=== PATIENT | female | born 1945 | race Caucasian/White ===

== ENCOUNTER → 2017-01-12 | Outpatient (CLI) | payer MEDICARE, OTHER ==
--- NOTE | 2017-01-12 12:43 | Diagnostic Imaging Report ---
INDICATION: Screening mammogram. COMPARISON: 01/09/2016. TECHNIQUE: Digital screening mammography was obtained with CAD and 3-dimensional tomosynthesis. FINDINGS: Scattered fibroglandular densities are present. There is no mass or suspicious calcification. IMPRESSION: Stable screening mammogram. No malignancy. ACR BI-RADS Category 1: Negative. Result letter will be mailed to the patient. Note: At least 10% of breast cancer is not imaged by mammography. Dictated by: Dictated on workstation # [id number]
== END ==
LOC: RAD 08:39
PROVIDERS: ATTEND Family Medicine
DX: Z12.31 Encounter for screening mammogram for malignant neoplasm of breast (principal)
CPT/HCPCS: 77067

== ENCOUNTER 2017-02-20 05:35 | Outpatient (CLI) | payer MEDICARE, OTHER ==
[~2017-02-20] VITALS: Ht 172.7 cm; Wt 89.8 kg
[2017-02-20] MEDS ORDERED: METF1000 PO (08:56)
[2017-02-20] MEDS ORDERED: CYAN250010 PO (08:56)
[2017-02-20] MEDS ORDERED: ASPI-586 PO (08:56)
[2017-02-20] MEDS ORDERED: iron PO (08:56)
[2017-02-20] MEDS ORDERED: AMLO5TAB2 PO (08:56)
[2017-02-20] MEDS ORDERED: METO-270 PO (08:56)
[2017-02-20] MEDS ORDERED: CHOL10003 PO (08:56)
[2017-02-20] MEDS ORDERED: FISH1CAP15 PO (08:56)
[2017-02-20] MEDS ORDERED: SIMV20TA3 PO (08:56)
[2017-02-20] MEDS ORDERED: CLON1TAB3 PO (08:56)
[2017-02-20] MEDS ORDERED: CITA40TA11 PO (08:56)
[2017-02-20] MEDS ORDERED: LEVO50TA6 PO (08:56)
== END 2017-02-20 09:18 ==
LOC: PREOP 05:35
PROVIDERS: ATTEND Surgery
DX: Z01.818 Encounter for other preprocedural examination (principal); Z80.0 Family history of malignant neoplasm of digestive organs

== ENCOUNTER 2017-02-23 07:56 | Day surgery (SDC) | payer MEDICARE, OTHER ==
[~2017-02-23] VITALS: Ht 172.7 cm; Wt 89.8 kg
[~2017-02-23 07:56] MED LIST: AMLO5TAB2 PO; ASPI-586 PO; CHOL10003 PO; CITA40TA11 PO; CLON1TAB3 PO; CYAN250010 PO; FISH1CAP15 PO; LEVO50TA6 PO; METF1000 PO; METO-270 PO; SIMV20TA3 PO; iron PO
--- OUTSIDE RECORDS SUMMARY | 2017-02-23 08:01 | XMS REPORT | Continuity of Care Document ---
Author Author [facility] Organization [facility] Address Unknown Phone Unavailable Allergies Active Description Code Type Severity Reaction Onset Reported/Identified Relationship to Patient Clinical Status Yes Sulfa (Sulfonamide Antibiotics) [id number] Drug Allergy Unknown N/A 05/14/2007 Medications Problems Date Dx Coded Attending Type Code Diagnosis Diagnosed By 12/27/2014 Ot 611.72 12/27/2014 Ot V76.12 12/27/2014 Ot 793.89 01/06/2015 CARLOTA HERNANDEZ, MARY LOU A Ot 250.00 DIAB EILEEN WO COMPL, TYPE II OR UNSPEC TY 01/06/2015 MARY LOU VAN MD A Ot 401.9 HYPERTENSION NOS 01/06/2015 MATT VAN MDNT A Ot 780.2 SYNCOPE AND COLLAPSE 01/06/2015 MATT VAN MDNT A Ot 992.5 HEAT EXHAUSTION NOS 01/06/2015 CARLOTA HERNANDEZ MARY LOU A Ot E000.8 OTHER EXTERNAL CAUSE STATUS 01/06/2015 MARY LOU VAN MD A Ot E849.[address] NEC 01/06/2015 CARLOTA HERNANDEZ MARY LOU A Ot E900.0 EXCESSIVE HEAT: WEATHER 01/06/2015 CARLOTA HERNANDEZ MARY LOU A Ot V15.82 HISTORY OF TOBACCO USE 01/06/2015 MARYANNE VIRGEN DO Ot V76.12 01/23/2015 MARYANNE VIRGEN DO Ot V76.12 11/15/2015 SERGIO BOND MANAGER RADIO Ot R00.0 TACHYCARDIA, UNSPECIFIED 11/15/2015 SERGIO BOND MANAGER RADIO Ot R42 DIZZINESS AND GIDDINESS 11/15/2015 SERGIO BOND MANAGER RADIO Ot R53.83 OTHER FATIGUE 11/16/2015 SERGIO BOND MANAGER RADIO Ot R00.0 TACHYCARDIA, UNSPECIFIED 11/16/2015 SERGIO BOND MANAGER RADIO Ot R42 DIZZINESS AND GIDDINESS 11/16/2015 SERGIO BOND MANAGER RADIO Ot R53.83 OTHER FATIGUE 12/11/2015 SERGIO BOND MANAGER RADIO Ot R00.0 TACHYCARDIA, UNSPECIFIED 12/11/2015 SERGIO BOND MANAGER RADIO Ot R42 DIZZINESS AND GIDDINESS 12/11/2015 SERGIO BOND MANAGER RADIO Ot R53.83 OTHER FATIGUE 12/19/2015 MARYANNE VIRGEN DO Ot V76.12 OTH SCREEN MAMMO-MALIGN NEOPLASM OF JEFFREY 12/19/2015 SERGIO BOND MANAGER RADIO Ot R00.0 TACHYCARDIA, UNSPECIFIED 12/19/2015 SERGIO BOND MANAGER RADIO Ot R42 DIZZINESS AND GIDDINESS 12/19/2015 SERGIO BOND MANAGER RADIO Ot R53.83 OTHER FATIGUE 12/20/2015 VANBECELAERE, HANS M WEB MANAGER Ot R06.09 OTHER FORMS OF DYSPNEA 12/20/2015 VANBECELAERE, HANS M WEB MANAGER Ot R07.9 CHEST PAIN, UNSPECIFIED 12/20/2015 VANBECELAERE, HANS M WEB MANAGER Ot Z82.49 FAMILY HX OF ISCHEM HEART DIS AND OTH DI 12/20/2015 VANBECELAERE, HANS M WEB MANAGER Ot R06.09 OTHER FORMS OF DYSPNEA 12/20/2015 VANBECELAERE, HANS M WEB MANAGER Ot R07.9 CHEST PAIN, UNSPECIFIED 12/20/2015 VANBECELAERE, HANS M WEB MANAGER Ot Z82.49 FAMILY HX OF ISCHEM HEART DIS AND OTH DI 01/10/2016 MARYANNE VIRGEN DO S Ot Z12.31 ENCNTR SCREEN MAMMOGRAM FOR MALIGNANT NE 01/14/2016 VANBECELAERE, HANS M WEB MANAGER Ot R06.09 OTHER FORMS OF DYSPNEA 01/14/2016 VANBECELAERE, HANS M WEB MANAGER Ot R07.9 CHEST PAIN, UNSPECIFIED 01/14/2016 VANBECELAERE, HANS M WEB MANAGER Ot Z82.49 FAMILY HX OF ISCHEM HEART DIS AND OTH DI 02/01/2016 MARYANNE VIRGEN DO S Ot Z12.31 ENCNTR SCREEN MAMMOGRAM FOR MALIGNANT NE 01/09/2017 RADHA VIRGEN DOLINE S Ot Z12.31 ENCNTR SCREEN MAMMOGRAM FOR MALIGNANT NE 01/12/2017 MARYANNE VIRGEN DO S Ot V76.12 OTH SCREEN MAMMO-MALIGN NEOPLASM OF JEFFREY 01/12/2017 HANS DHILLON WEB MANAGER Ot R06.09 OTHER FORMS OF DYSPNEA 01/12/2017 HANS DHILLON WEB MANAGER Ot R07.9 CHEST PAIN, UNSPECIFIED 01/12/2017 HANS DHILLON WEB MANAGER Ot Z82.49 FAMILY HX OF ISCHEM HEART DIS AND OTH DI 01/12/2017 SERGIO BOND MANAGER RADIO Ot R00.0 TACHYCARDIA, UNSPECIFIED 01/12/2017 SERGIO BOND MANAGER RADIO Ot R42 DIZZINESS AND GIDDINESS 01/12/2017 SERGIO BOND MANAGER RADIO Ot R53.83 OTHER FATIGUE 01/12/2017 MARYANNE VIRGEN DO S Ot Z12.31 ENCNTR SCREEN MAMMOGRAM FOR MALIGNANT NE 01/12/2017 MARYANNE VIRGEN DO S Ot Z12.31 ENCNTR SCREEN MAMMOGRAM FOR MALIGNANT NE 01/18/2017 MARYANNE VIRGEN DO S Ot Z12.31 ENCNTR SCREEN MAMMOGRAM FOR MALIGNANT NE 02/05/2017 EPIFANIONDMARYANNE BENTLEY DO S Ot Z12.31 ENCNTR SCREEN MAMMOGRAM FOR MALIGNANT NE Procedures Results Encounters ACCT No. Visit Date/Time Discharge Status Pt. Type Provider Facility Loc./Unit Complaint [id number] 01/12/2017 08:39:00 2016 23:59:59 CLS Outpatient RADHA VIRGEN DOLINE S [facility] RAD SCREENING [id number] 01/09/2016 08:51:00 2015 23:59:59 CLS Outpatient EPIFANIONDER TELMA DE ANDAMARYANNE S [facility] RAD SCREENING [id number] 12/19/2015 09:54:00 2015 23:59:59 CLS Outpatient HANS DHILLON WEB MANAGER [facility] CARD DYPSNEA W/ EXERTION,CHEST PAIN [id number] 11/14/2015 14:05:00 2015 23:59:59 CLS Outpatient SERGIO BOND MANAGER RADIO [facility] CARD TACHYCARDIA,DIZZINESS, FATIGUE [id number] 01/06/2015 12:52:00 2014 13:55:00 DIS Emergency CARLOTA HERNANDEZ, MARY LOU Kim [facility] ER SYNCOPE [id number] 12/29/2014 11:25:00 2014 23:59:59 CLS Outpatient MARYANNE VIRGEN DO [facility] RAD SCREENING [id number] 01/09/2014 07:04:00 2013 23:59:59 CLS Outpatient [id number] 01/06/2013 07:08:00 2012 23:59:59 CLS Outpatient [id number] 02/23/2017 08:30:00 PEN Preadmit JAQUELIN HERNANDEZ, STU Bonds [facility] ENDO FAMILY HISTORY COLON CA(SISTER) [id number] 01/03/2010 09:12:00 Document Registration [id number] 12/31/2009 07:12:00 Document Registration
[2017-02-23 08:29] VITALS: BP 130/85
[2017-02-23] MEDS ORDERED: NS IV 500 ML 500 ML IV PRN (08:30)
--- NOTE | 2017-02-23 08:32 | History & Physicial ---
History of Present Illness History of Present Illness Reason for visit/HPI to undergo screening colonoscopy. Personal history of polyps and a family history of colorectal cancer. Date of Admission Date Seen by Provider: Feb 23, 2017 Time Seen by Provider: 08:29 I consulted on this patient on 02/23/17 08:28 Attending Physician Stu Holland MD Admitting Physician Jennyfer Shelton DO Consult Allergies and Home Medications Allergies Coded Allergies: Sulfa (Sulfonamides) (Verified Allergy, Unknown, 05/14/07) Home Medications Amlodipine Besylate 5 Mg Tablet, 5 MG PO DAILY, (Reported) Aspirin 81 Mg Tablet.dr, 81 MG PO DAILY, (Reported) Cholecalciferol (Vitamin D3) 1,000 Unit Tablet, 1,000 UNIT PO DAILY, (Reported) Citalopram Hydrobromide 40 Mg Tablet, 40 MG PO DAILY, (Reported) Clonazepam 1 Mg Tablet, 1 MG PO HS, (Reported) Cyanocobalamin (Vitamin B-12) 2,500 Mcg Tablet, 2,500 MCG PO DAILY, (Reported) Fish Oil/Dha/Epa 1 Each Capsule, 1,200 MG PO DAILY, (Reported) Levothyroxine Sodium 50 Mcg Tablet, 50 MCG PO DAILY, (Reported) Metformin HCl 1,000 Mg Tablet, 1,000 MG PO BID, (Reported) Metoprolol Succinate 25 Mg Tab.er.24h, 25 MG PO HS, (Reported) Simvastatin 20 Mg Tablet, 20 MG PO HS, (Reported) [iron] , 65 MG PO DAILY, (Reported) Past Jzrjcrb-Aqpati-Zfkemq Hx Patient Social History Marrital Status: Employed/Student: retired Alcohol Use: Denies Use Recreational Drug Use: No Smoking Status: Former Smoker Former Smoker, Quit: Feb 20, 1985 Recent Foreign Travel: No Contact w/other who traveled: No Recent Hopitalizations: No Recent Infectious Disease Expo: No Immunizations Up To Date Date of Influenza Vaccine: Feb 05, 2017 Seasonal Allergies Seasonal Allergies: Yes Surgeries Yes Hysterectomy Respiratory No Cardiovascular Yes Hypertension Neurological No Reproductive System Hx Reproductive Disorders: No PRIEST History: Hysterectomy Genitourinary No Gastrointestinal No Musculoskeletal Yes Arthritis Endocrine History of Endocrine Disorders: Yes Endocrine Disorders: Diabetes, Non-Insulin dep HEENT History of HEENT Disorders: No Cancer No Psychosocial History of Psychiatric Problem: Yes Behavioral Health Disorders: Anxiety Integumentary History of Skin or Integumenta: No Constitutional: no symptoms reported EENTM: no symptoms reported Respiratory: no symptoms reported Gastrointestinal: no symptoms reported Musculoskeletal: no symptoms reported Skin: no symptoms reported Psychiatric/Neurological: No Symptoms Reported, Anxiety Physical Exam Vital Signs Capillary Refill : General Appearance: Anxious HEENT: Normal ENT Inspection Neck: Normal Inspection Respiratory: Lungs Clear Cardiovascular: Regular Rate, Rhythm Gastrointestinal: Non Tender, Soft Rectal: Deferred Back: Normal Inspection Neurologic/Psychiatric: Alert, Oriented x3 Skin: Warm/Dry Assessment/Plan Assessment and Plan lady with a personal history of polyps and a family history of colorectal cancer. For screening colonoscopy. Details of the procedure, post polypectomy bleeding, iatrogenic perforation etc. discussed thoroughly. Seems to be in agreement to proceed Problems: STU HOLLAND MD Feb 23, 2017 8:32 am
--- NOTE | 2017-02-23 08:33 | Conscious Sedation/ASA ---
Conscious Sedation Pre-Proced Time Reviewed: 08:33 ASA Class: 2 Airway Mallampati Classification: ([place] appropriate class) I. II. III, IV Lungs Heart ASA score ASA 1: a normal healthy patient ASA 2: a patient with a mild systemic disease (mid diabetes, controlled hypertension, obesity ASA 3: a patient with a severe systemic disease that limits activity (angina , COPD, prior Myocardial infarction) ASA 4: a patient with an incapacitating disease that is a constant threat to life (CHF, renal failure) ASA 5: a moribund patient not expected to survive 24 hrs. (ruptured aneurysm) ASA 6: a declared brain patient whose organs are being harvested. For emergent operations, add the letter E after the classification Grade 2 Sedation Plan: Discussed options with patient/fam Note The patient is an appropriate candidate to undergo the planned procedure, sedation, and anesthesia. The patient immediately re-assessed prior to indication. STU HAMMER MD Feb 23, 2017 8:33 am
[2017-02-23] MEDS ORDERED: MIDAZOLAM 2 MG/2 ML (VERSED) VIAL ONE (08:34)
[2017-02-23] MEDS: fentaNYL INJECTION 100 MCG/2 ML AMP IVP PRN ×4 (08:35→08:48)
[2017-02-23] MEDS: MIDAZOLAM 2 MG/2 ML (VERSED) VIAL IVP PRN ×4 (08:38→08:47)
--- NOTE | 2017-02-23 09:05 | Endo Procedure Record ---
Endo Procedure Report Date of Procedure Feb 23, 2017 Surgeon (s) STU HAMMER MD Post Procedure/Op Diagnosis diffuse diverticulosis Procedure Performed colonoscopy to cecum Description of Procedure Anesthesia Type: Conscious Sedation Specimen(s) collected/removed none Description of the Procedure indication for procedure: This lady, with a personal history of polyps and a family history of colorectal cancer, came in for a screening colonoscopy. Informed consent was obtained after reviewing the procedure in detail. Description of the procedure: She was placed in left lateral decubitus position and her vital signs were monitored. Conscious sedation was achieved using Versed and fentanyl. Digital rectal examination was unremarkable. The colonoscope was then introduced into the rectum and advanced all the way up to the cecum. The scope was then withdrawn slowly and the mucosa examined in a systematic fashion Findings: Diffuse diverticulosis. No polyps were found She tolerated the procedure well and was taken back to the nursing area in a stable condition. Impression: personal history of polyps and family history of colorectal cancer. Negative exam with reference to polyps. Recommend surveillance colonoscopy in 5 years Copies To: MARYANNE VIRGEN XAVIER M MD Feb 23, 2017 9:05 am
--- NOTE | 2017-02-23 09:07 | Discharge Inst-Simple/Standard ---
Discharge Inst-Standard Discharge Medications New, Converted or Re-Newed RX: Other Patient Instructions/Follow Up Plan of Care/Instructions/FU: repeat colonoscopy in 5 years Activity as Tolerated: Yes Discharge Diet: No Restrictions STU HAMMER MD Feb 23, 2017 9:07 am
[2017-02-23 10:05] VITALS: BP 101/64
[2017-02-23 10:07] VITALS: BP 101/64
== END 2017-02-23 10:09 | disposition home or self-care (01) ==
LOC: ENDO 07:56
PROVIDERS: ATTEND Surgery
DX: Z12.11 Encounter for screening for malignant neoplasm of colon (principal); K57.30 Diverticulosis of large intestine without perforation or abscess without bleeding; Z86.010 Personal history of colon polyps; Z80.0 Family history of malignant neoplasm of digestive organs; I10 Essential (primary) hypertension; E11.9 Type 2 diabetes mellitus without complications; F41.9 Anxiety disorder, unspecified

== ENCOUNTER → 2017-10-16 | Outpatient (CLI) | payer MEDICARE, OTHER ==
[~2017-10-16] MED LIST changes: -METF1000 PO; +METF10002 PO; -METO-270 PO; +METO-387 PO
--- NOTE | 2017-10-16 12:30 | Diagnostic Imaging Report ---
PROCEDURE: US Renal Bilateral. TECHNIQUE: Multiple real-time grayscale images were obtained over the kidneys in various projections bilaterally. INDICATION: Elevated microalbumin. FINDINGS: The right kidney measures 11.2 x 4.3 x 4.8 cm and the left kidney measures 12.7 x 5.8 x 5.8 cm. Cortical thickness and echogenicity is normal. There is a small cyst in the right kidney approximately 17 mm in size. No calculi or hydronephrosis is detected. Bilateral ureteral jets are visualized within the urinary bladder. IMPRESSION: Small right renal cyst. The study is otherwise unremarkable. Dictated by: Dictated on workstation # [id number]
== END ==
LOC: RAD 11:14
PROVIDERS: ATTEND Nurse Practitioner Family
DX: N28.1 Cyst of kidney, acquired (principal)
CPT/HCPCS: 76770

== ENCOUNTER → 2019-01-25 | Outpatient (CLI) | payer MEDICARE, OTHER ==
[~2019-01-25] MED LIST changes: -AMLO5TAB2 PO; +AMLO5TAB9 PO; +CLON1TAB13 PO; -CLON1TAB3 PO; +METF-399 PO; -METF10002 PO
--- NOTE | 2019-01-25 10:44 | Diagnostic Imaging Report ---
INDICATION: Postmenopausal screening for osteoporosis. COMPARISON: 06/10/2007 FINDINGS: AP Spine L1-L4: [BMD (g/cm2): 1.332] [T-Score: 1.1] [Z-Score: 1.9] [BMD Previous: 1.244] [BMD % Change: 7.1] LT Hip Neck: [BMD (g/cm2): 0.907] [T-Score: -0.9] [Z-Score: 0.3] LT Hip Total: [BMD (g/cm2):1.070] [T-Score:0.5] [Z-Score: 1.5] [BMD Previous: 1.106] [BMD % Change: -3.3] RT Hip Neck: [BMD (g/cm2):0.869] [T-Score:-1.2] [Z-Score:0.1] RT Hip Total: [BMD (g/cm2):1.055] [T-score:0.4] [Z-Score:1.4] [BMD Previous:1.080] [BMD % Change:-2.3] *Indicates significant change from prior examination based on 95% confidence level. World Health Organization criteria for BMD interpretation classify patients as Normal (T-score at or above -1.0), Osteopenic (T-score between -1.0 and -2.5) or Osteoporotic (T-score at or below -2.5). LIMITATIONS AND MODIFICATION: None. FRACTURE RISK (FRAX SCORE): The ten year probability of (%): Major Osteoporotic Fracture: [N/A] Hip Fracture: [N/A] IMPRESSION: 1. Normal bone mineral density. 2. Due to differences in equipment utilized between examinations, direct quantitative comparison is not possible to assess for interval change in bone mineral density. 3. See below National Osteoporosis Foundation guidelines on when to potentially initiate pharmacologic therapy. Based on the National Osteoporosis Foundation Guidelines, pharmacologic treatment should be initiated in any of the following, unless clinical conditions suggest otherwise: * Any patient with prior fragility fracture of the hip or vertebrae. A spine fracture indicates 5X risk for subsequent spine fracture and 2X risk for subsequent hip fracture. * Osteoporosis (T-score <-2.5). * Postmenopausal women and men age 50 and older with low bone mass/osteopenia (T-score between -1.0 and -2.5) by DXA and 10-year major osteoporotic fracture greater than 20% or a 10-year probability of hip fracture greater than 3%. These fracture risks are supplied above in the FRAX score, if applicable. * Clinician judgement and/or patient preferences may indicate treatment for people with 10-year fracture probabilities above or below these levels. Dictated by: Dictated on workstation # [id number]
--- NOTE | 2019-01-25 13:09 | Diagnostic Imaging Report ---
INDICATION: Routine screening. COMPARISON: Comparison is made with prior mammograms from 01/15/2018 and 01/12/2017. TECHNIQUE: 2-D and 3-D bilateral screening mammography was performed. The current study was also evaluated with a Computer Aided Detection (CAD) system. 3-D tomosynthesis was also performed and reviewed. FINDINGS: Scattered fibroglandular densities are identified bilaterally. The parenchymal pattern is stable. No dominant mass or malignant-appearing microcalcifications are seen. The axillae are unremarkable. There are benign calcifications present. IMPRESSION: No mammographic features suspicious for malignancy are identified. ACR BI-RADS Category 2: Benign findings. Result letter will be mailed to the patient. Note: At least 10% of breast cancer is not imaged by mammography. Dictated by: Dictated on workstation # [id number]
== END ==
LOC: RAD 09:14
PROVIDERS: ATTEND Family Medicine
DX: Z12.31 Encounter for screening mammogram for malignant neoplasm of breast (principal); Z13.820 Encounter for screening for osteoporosis; M81.0 Age-related osteoporosis without current pathological fracture; Z78.0 Asymptomatic menopausal state
CPT/HCPCS: 77067; 77080

== ENCOUNTER → 2021-01-30 | Outpatient (CLI) | payer MEDICARE, OTHER ==
[~2021-01-30] MED LIST changes: +AMLO-250 PO; -AMLO5TAB9 PO; -METO-387 PO; +MTP25TSR PO; +SIMV20TA26 PO; -SIMV20TA3 PO
--- NOTE | 2021-01-30 12:32 | Diagnostic Imaging Report ---
INDICATION: Routine screening. COMPARISON: 01/27/2020 and 01/25/2019. TECHNIQUE: 2D and 3D bilateral screening mammography was performed with CAD. FINDINGS: Scattered fibroglandular densities are identified bilaterally. The parenchymal pattern is stable. No mass or malignant-appearing microcalcifications are seen. The axillae are unremarkable. IMPRESSION: No mammographic features suspicious for malignancy are identified. ACR BI-RADS Category 1: Negative. Result letter will be mailed to the patient. Note: At least 10% of breast cancer is not imaged by mammography. Dictated by: Dictated on workstation # [id number]
== END ==
LOC: RAD 09:46
PROVIDERS: ATTEND Family Medicine
DX: Z12.31 Encounter for screening mammogram for malignant neoplasm of breast (principal)
CPT/HCPCS: 77063; 77067

== ENCOUNTER → 2021-05-14 | Outpatient (CLI) | payer MEDICARE ==
[~2021-05-14] MED LIST changes: -CITA40TA11 PO; +CITA40TA13 PO
--- NOTE | 2021-05-14 18:04 | Diagnostic Imaging Report ---
INDICATION: Right hip pain. TIME OF EXAM: 3:47 PM Two views of the right hip were obtained. FINDINGS: There are severe osteoarthritic changes of the right hip. There is complete loss of the superior joint space. There is sclerosis. There are subchondral cysts within the femoral head with some flattening of the femoral head. No fractures are seen. Right-sided rami are intact. IMPRESSION: Severe osteoarthritic changes to the right hip. Dictated by: Dictated on workstation # [id number]
== END ==
LOC: RAD 15:21
PROVIDERS: ATTEND Family Medicine
DX: M16.11 Unilateral primary osteoarthritis, right hip (principal)
CPT/HCPCS: 73502

== ENCOUNTER → 2022-01-31 | Outpatient (CLI) | payer MEDICARE ==
--- NOTE | 2022-01-31 11:27 | Diagnostic Imaging Report ---
3-D bilateral screening mammogram with CAD. This study was compared to the prior exams of 01/30/2021, 01/27/2020 and 01/25/2019. At this time there are no current complaints. The current study was also evaluated with a Computer Aided Detection (CAD) system. FINDINGS: The fibroglandular tissue in both breasts is heterogeneously dense. This does limit the sensitivity of this exam. Overall, there does not appear to have been any significant change when compared to the prior study. No primary or secondary sign of malignancy is noted. IMPRESSION: There is no radiographic evidence for malignancy. ACR BI-RADS Category 1: Negative. Result letter will be mailed to the patient. Note: At least 10% of breast cancer is not imaged by mammography. Dictated by: Dictated on workstation # [id number]
== END ==
LOC: RAD 08:15
PROVIDERS: ATTEND Family Medicine
DX: Z12.31 Encounter for screening mammogram for malignant neoplasm of breast (principal)
CPT/HCPCS: 77063; 77067

== ENCOUNTER → 2022-11-13 | Outpatient (CLI) | payer MEDICARE, OTHER ==
--- NOTE | 2022-11-13 11:28 | Diagnostic Imaging Report ---
PROCEDURE: US Renal Bilateral. TECHNIQUE: Multiple real-time grayscale images were obtained over the kidneys in various projections bilaterally. INDICATION: Renal insufficiency. FINDINGS: Right kidney measures 9.6 x 4.1 x 5.1 cm and the left kidney measures 9.9 x 4.7 x 4.3 cm. Right kidney does contain a cyst measuring approximately 2.0 x 2.2 x 2.4 cm, slightly increased compared with 1.8 x 1.1 x 1.5 cm on prior exam from 2018. Left renal cyst measures 1.6 x 1.2 x 1.6 cm. Cortical thickness and echogenicity is normal bilaterally. No calculi are seen. There is no hydronephrosis. Bladder is decompressed. Bilateral ureteral jets were visualized. IMPRESSION: Bilateral renal cysts. No calculi or hydronephrosis is detected. Dictated by: Dictated on workstation # [id number]
== END ==
LOC: RAD 08:28
PROVIDERS: ATTEND Family Medicine
DX: N28.1 Cyst of kidney, acquired (principal); N28.9 Disorder of kidney and ureter, unspecified
CPT/HCPCS: 76770

== ENCOUNTER → 2023-02-06 | Outpatient (CLI) | payer MEDICARE, OTHER ==
--- NOTE | 2023-02-06 11:18 | Diagnostic Imaging Report ---
Indication: Routine screening. Comparison is made with prior mammograms 01/31/2022 and 01/30/2021. 2-D and 3-D bilateral screening mammography was performed with CAD. Both breasts remains heterogeneously dense, limiting the sensitivity of mammography. The parenchymal pattern is stable. No mass or malignant-appearing microcalcifications are seen. Axillae are unremarkable. IMPRESSION: BI-RADS Category 1 No mammographic features suspicious for malignancy are identified. ACR BI-RADS Category 1: Negative. Result letter will be mailed to the patient. Note: At least 10% of breast cancer is not imaged by mammography. Dictated by: Dictated on workstation # [id number]
== END ==
LOC: RAD 07:06
PROVIDERS: ATTEND Nurse Practitioner Family
DX: Z12.31 Encounter for screening mammogram for malignant neoplasm of breast (principal)
CPT/HCPCS: 77063; 77067